=== PATIENT | male | born 1985 | race Caucasian/White ===

== ENCOUNTER 2019-04-28 16:32 | Emergency (ER) | payer SELFPAY ==
[~2019-04-28] VITALS: Ht 177.8 cm; Wt 77.3 kg
[2019-04-28 16:54] VITALS: BP 131/79; TEMP 99.3
[2019-04-28 18:36] VITALS: PULSE 60
== END 2019-04-28 18:36 | disposition home or self-care (01) ==
LOC: COL.ER 16:32
DX: S43.005A Unspecified dislocation of left shoulder joint, initial encounter (principal); W17.2XXA Fall into hole, initial encounter; Y92.59 Other trade areas as the place of occurrence of the external cause